=== PATIENT | female | born 1960 | race Caucasian/White ===

== ENCOUNTER 2023-04-21 08:20 | Outpatient (CLI) | payer OTHER ==
[2023-04-21 09:06] LABS: BASOPHILS # (AUTO) 0.1 K/uL (0.00-0.22); BASOPHILS % (AUTO) 0.8 % (0.0-2.0); EOSINOPHILS # (AUTO) 0.2 K/uL (0-0.4); EOSINOPHILS % (AUTO) 1.6 % (0.0-4.0); HEMATOCRIT 42.1 % (36-48); HEMOGLOBIN 14.4 g/dL (12.0-16.0); LYMPHOCYTES # (AUTO) 3.9 K/uL (2.5-16.5); LYMPHOCYTES % (AUTO) 39.1 % (20.5-51.1); MEAN CORPUSCULAR HEMOGLOBIN 30 pg (27-31); MEAN CORPUSCULAR HGB CONC 34 g/dL (33-37); MEAN CORPUSCULAR VOLUME 87.8 fL (80-94); MONOCYTES # (AUTO) 0.6 K/uL (0.8-1.0); MONOCYTES % (AUTO) 5.8 % (1.7-9.3); NEUTROPHILS # (AUTO) 5.2 K/uL (1.8-7.7); NEUTROPHILS % (AUTO) 52.7 % (42.2-75.2); PLATELET COUNT (AUTO) 387 K/uL (140-450); RED BLOOD CELL COUNT(AUTO) 4.79 MIL/uL (4.20-5.40); WHITE BLOOD COUNT (AUTO) 9.9 K/uL (4.8-10.8)
[2023-04-21 09:30] LABS: ALBUMIN 3.9 g/dL (3.4-5.0); ANION GAP 13.7 (8-16); CALCIUM 8.4 mg/dL (8.5-10.1); CARBON DIOXIDE 28.1 mmol/L (21-32); CHOL/HDL RATIO 4.6 (1-4.5); CREATININE 0.6 mg/dL (0.6-1.3); POTASSIUM 3.8 mmol/L (3.5-5.1); TOTAL BILIRUBIN 0.3 mg/dL (0.0-1.0); TOTAL PROTEIN, SERUM 7.9 g/dL (6.4-8.2)
[2023-04-21 10:11] LABS: THYROID STIMULATING HORMONE 2.36 uIU/mL (0.34-3.74)
[2023-04-22 12:08] LABS: MICROALBUMIN, UR RANDOM <3.0 ug/mL (Not Estab.)
== END 2023-04-21 20:04 | disposition home or self-care (01) ==
LOC: MLB 08:20
PROVIDERS: ATTEND Student in an Organized Health Care Education/Training Program
DX: Z00.00 Encounter for general adult medical examination without abnormal findings (principal)
CPT/HCPCS: 36415; 80053; 82043; 82570; 83036; 84443; 85025